=== PATIENT | female | born 1960 | race Caucasian/White ===

== ENCOUNTER 2016-12-24 14:05 | Emergency (ER) | payer OTHER ==
[~2016-12-24] VITALS: Ht 157.5 cm; Wt 87.3 kg
[2016-12-24 14:09] VITALS: Ht 157.5 cm; Wt 87.3 kg
[2016-12-24] MEDS ORDERED: ASPIRIN 325 MG TAB PO STA (14:11)
[2016-12-24] MEDS ORDERED: SOD CHLORIDE 0.9% 1,000 ML IV STA (14:11)
--- NOTE | 2016-12-24 14:32 | RADRPT ---
PROCEDURE: Noncontrast CT Head. CLINICAL INDICATION: Code stroke. Acute neurologic deficit. TECHNIQUE: Noncontrast CT of the head was obtained. The administered radiation dose was CTDI vol = 44.19 mGy, DLP = 720.23 mGy-cm. One or more of the following dose reduction techniques were used: Au tomated exposure control, Adjustment of the mA and/or kV according to patient size, or Use of iterat sheree reconstruction technique. COMPARISON: There are no similar studies submitted for comparison. FINDINGS: There is minimal generalized cerebral volume loss. There are minimal vascular calcifications within the intracranial carotid arteries. There is no loss of wynn-white differentiation to suggest acute territorial infarction. There is no acute intracranial hemorrhage or extra-axial fluid collection. There is no mass effect. No midline shift is identified. The orbits are within normal limits. The paranasal sinuses are well aerated. No destructive osseous lesion is identified. IMPRESSION: 1. No loss of wynn-white differentiation to suggest acute territorial infarction. Consider CTA of t he head/neck or noncontrast MRI of the brain as clinically warranted. 2. No acute intracranial hemorrhage or extra-axial fluid collection. 3. Minimal generalized cerebral volume loss. Further findings as detailed above. These findings were discussed with Dr. Dayron Vaughn at 02:30 p.m. on December 24, 2016. RPTAT: PP .Manuel Hardy MD, Date Time Electronically viewed and signed by .Manuel Hardy MD, on 12/24/2016 14:31 .F/
[2016-12-24 14:44] LABS: ADD SCAN DIFF NO
[2016-12-24 14:47] LABS: BASOPHIL # 0.1 10^3/ul (0.0-0.1); BASOPHILS % 0.6 % (0.0-2.0); EOSINOPHILS # 0.1 10^3/ul (0.0-0.5); EOSINOPHILS % 1.1 % (0.0-7.0); HEMATOCRIT 42.3 % (37.0-47.0); HEMOGLOBIN 13.3 g/dl (12.0-16.0); LYMPHOCYTES # 1.9 10^3/ul (0.8-2.9); LYMPHOCYTES % 18.2 % (15.0-51.0); MEAN CORPUSCULAR HEMOGLOBIN 27.5 pg (29.0-33.0); MEAN CORPUSCULAR HGB CONC 31.4 g/dl (32.0-37.0); MEAN CORPUSCULAR VOLUME 87.6 fl (82.0-101.0); MEAN PLATELET VOLUME 9.5 fl (7.4-10.4); MONOCYTE # 0.8 10^3/ul (0.3-0.9); MONOCYTES % 7.8 % (0.0-11.0); NEUTROPHIL # 7.3 10^3/ul (1.6-7.5); NEUTROPHILS % 71.6 % (39.0-77.0); PLATELET COUNT 341 10^3/UL (140-415); RED BLOOD COUNT 4.83 10^6/ul (4.20-5.40); RED CELL DISTRIBUTION WIDTH 14.5 % (11.5-14.5); WHITE BLOOD COUNT 10.2 10^3/ul (4.8-10.8)
--- NOTE | 2016-12-24 14:50 | RADRPT ---
PROCEDURE: XR Chest. CLINICAL INDICATION: Stroke TECHNIQUE: Chest AP portable. COMPARISON: No comparison available. FINDINGS: The mediastinal structures are unremarkable. The heart is normal in size and configuration. The pu lmonary vascularity is normal. The lung vazquez are unremarkable. No consolidation is identified. The pleural spaces are unremarkable. The axial skeleton is unremarkable. IMPRESSION: No active intrathoracic disease. RPTAT: HGDB .Sunny Brown MD, MD Date Time Electronically viewed and signed by .Sunny Brown MD, on 12/24/2016 14:50 .B/
[2016-12-24 14:55] LABS: INR 0.91; PROTIME 12.3 Sec (12.2-14.2)
[2016-12-24 14:57] LABS: ALBUMIN 3.6 g/dl (3.3-4.9); CHLORIDE 109 mmol/L (97-110); PARTIAL THROMBOPLASTIN TIME 31.4 Sec (25.0-35.0)
[2016-12-24 14:58] LABS: POTASSIUM 4.1 mmol/L (3.5-5.1); SODIUM 144 mmol/L (135-144)
[2016-12-24 15:00] LABS: ALBUMIN/GLOBULIN RATIO 1.02; ALKALINE PHOSPHATASE 140 IU/L (42-121); ANION GAP 19 (8-16); ASPARTATE AMINO TRANSFERASE 18 IU/L (15-46); BLOOD UREA NITROGEN 19 mg/dl (7-20); CARBON DIOXIDE 20 mmol/L (21-31); CREATININE 0.96 mg/dl (0.44-1.00); TOTAL PROTEIN 7.1 g/dl (6.1-8.1)
--- NOTE | 2016-12-24 15:00 | QN ---
Documentation Comment Telestroke Consultation 56 yo woman says she was at [place] [employer], sat down on couch in waiting area at about 10:15 and then when she tried to stand about an hour and a half later, she noted her left leg felt abnormal and heavy, made it difficult to walk. Persisted so ultimately to ED. No similar, says she has chronic slurring of speech which is not changed. No change in vision. No symptoms affecting right leg or either arm. No confusion, no headache, no back pain per patient. Takes ASA, no stronger blood thinner. Has DM2 but no known h/o stroke. No recent sign of bleeding per patient, no recent surgery, no h/o major head trauma. PEx: 141/85 Alert, oriented, no aphasia, mild dysarthria (patient says unchanged). No droop , EOMI, VFF and no hemineglect as best I can determine, denies diplopia. No drift of any extremity, though subjectively more difficult to lift left leg. No sensory loss left leg but subjectively feels abnormal. No clumsiness. Able to stand unassisted, though feels mildly unsteady, she stands with a normal base and can take a couple of steps without apparent difficulty. CT head no ICH Dx: 1. LLE weakness and sensory change Recs: Carefully considered possibility of stroke, though significant diagnostic uncertainty due to isolation of symptoms to 1 limb. Also, although symptoms persist, there is minimal objective evidence of neurologic dysfunction , and I estimate she would recover well without tPA even if this is a stroke. Ultimately it was felt that risk of IV tPA outweighed benefit and decision was made not to administer tPA at very end of 4.5 hour time window. ASA, permissive HTN, MRI brain, echo, tele. ALTAGRACIA HENRIQUEZ MD Dec 24, 2016 14:58
[2016-12-24 15:01] LABS: ALANINE AMINOTRANSFERASE 22 IU/L (13-69); GLUCOSE 133 mg/dl (70-220)
[2016-12-24 15:13] LABS: ADD UMIC NO; URINE BILIRUBIN (Dip) NEGATIVE (NEGATIVE); URINE BLOOD (Dip) NEGATIVE (NEGATIVE); URINE COLOR LT. YELLOW (YELLOW); URINE GLUCOSE (Dip) NEGATIVE (NEGATIVE); URINE KETONES (Dip) NEGATIVE (NEGATIVE); URINE LEUKOCYTE ESTERASE (Dip) NEGATIVE (NEGATIVE); URINE NITRITE (Dip) NEGATIVE (NEGATIVE); URINE TOTAL PROTEIN (Dip) NEGATIVE (NEGATIVE); URINE UROBILINOGEN (Dip) 0.2 E.U./dL (0.1-1.0)
[2016-12-24] MEDS ORDERED: SOD CHLORIDE 0.9% 100 ML ONE (15:13)
[2016-12-24] MEDS ORDERED: IODIXANOL LOCM 100 ML BTL ONE (15:13)
[2016-12-24 15:17] LABS: TROPONIN-I < 0.012 ng/ml (0.00-0.12)
[2016-12-24] MEDS ORDERED: ONDANSETRON 4 MG INJ ONE (15:21)
[2016-12-24 15:30] LABS: BENZODIAZEPINES Negative (NEGATIVE)
[2016-12-24 15:33] LABS: OPIATES Negative (NEGATIVE)
[2016-12-24 15:34] LABS: BARBITURATES Negative (NEGATIVE); CANNABINOIDS Negative (NEGATIVE); COCAINE Negative (NEGATIVE)
--- NOTE | 2016-12-24 16:08 | RADRPT ---
PROCEDURE: CTA Head and neck. CLINICAL INDICATION: Code stroke. Acute neurologic deficit. TECHNIQUE: CTA of the head and neck was obtained . Sagittal and coronal reformations and MIPs were provided. Images were obtained prior following the intravenous contrast administration of 80 cc Vis ipaque 320 contrast. The administered radiation dose was CTDI vol = 21.45, 16.02 mGy, DLP = 10.72, 666.9 mGy-cm. Coronal and sagittal as well as maximal intensity projection reformations were obtain ed. Direct measurements of vessel diameters was made in reference to measurements of the distal inte rnal carotid artery diameter. One or more of the following dose reduction techniques were used: Auto mated exposure control, Adjustment of the mA and/or kV according to patient size, or Use of iterativ e reconstruction technique. COMPARISON: There are no similar studies submitted for comparison.Noncontrast CT of the head from e same day. FINDINGS: CTA neck: Aorta: Normal in caliber. There are mild vascular calcifications within the aortic arch. Right common carotid artery: Patent without evidence of stenosis. Right internal carotid artery: There is moderate to extensive atheroma with moderate vascular calcif ications within the right carotid bulb causing 72% stenosis by NASCET criteria. Right external carotid artery: Patent without evidence of stenosis. Left common carotid artery: Patent without evidence of stenosis. Left internal carotid artery: There is mild atheroma and mild vascular calcifications within the lef t carotid bulb without significant stenosis by NASCET criteria. Left external carotid artery: Patent without evidence of stenosis. V1/V2 vertebral arteries: The left vertebral artery originates off of the aorta which is a normal va riant. Patent bilaterally without evidence of stenosis. Vertebral artery dominance: Right. CTA head: Carotid arteries: There are mild vascular calcifications within the bilateral cavernous carotid [place]. Patent bilaterally without evidence of stenosis. Anterior cerebral arteries: Patent bilaterally without evidence of stenosis. Middle cerebral arteries: Patent bilaterally without evidence of stenosis. Posterior cerebral arteries: Patent bilaterally without evidence of stenosis. Anterior communicating artery: Present. Posterior communicating arteries: Present bilaterally. Basilar artery: Patent without evidence of stenosis. V3/V4 Vertebral arteries: Patent bilaterally without evidence of stenosis. Aneurysm: No aneurysm is identified. Venous sinuses: Patent. CT head with contrast: No significant change from recent noncontrast head CT given limitations of contrast. CT neck: There is no cervical adenopathy. There are mild to moderate emphysematous changes within the lungs. There are mild degenerate changes within the cervical spine. IMPRESSION: CTA Head 1. No arterial thrombus or vessel occlusion. 2. No intracranial stenosis. 3. No intracranial aneurysm. CTA Neck 1. Atherosclerotic disease causing 72% right internal carotid artery stenosis. 2. Mild atherosclerotic disease without left cervical internal carotid artery stenosis by NASCET cri teria. 3. The left vertebral artery originates off of the aorta which is a normal variant. 4. Mild to moderate emphysematous changes within the lungs. Further findings as detailed above. These findings were discussed with Dr. Dayron Vaughn at 04:01 p.m. on December 24, 2016. RPTAT: PP .Manuel Hardy MD, MD Date Time Electronically viewed and signed by .Manuel Hardy MD, on 12/24/2016 16:07 .F/
[2016-12-24] MEDS ORDERED: ASPI-664 PO (16:10)
[2016-12-24] MEDS ORDERED: OMEP20CA16 PO (16:12)
[2016-12-24] MEDS ORDERED: LEVO125T75 PO (16:13)
[2016-12-24] MEDS ORDERED: METF-382 PO (16:14)
[2016-12-24] MEDS ORDERED: CLON-412 PO (16:15)
[2016-12-24] MEDS ORDERED: BUSP10TA2 PO (16:18)
--- NOTE | 2016-12-24 16:18 | ERA ---
ER Documentation Chief Complaint Date/Time DATE: 12/24/16 TIME: 16:08 Chief Complaint left leg heaviness x3hrs no other neurodeficit noted HPI 56-year-old woman brought in by EMS for complaints of left leg weakness, gait ataxia, feeling "heavy" with paresthesias to the leg which occurred about 3 hours prior to arrival. She states she was sitting down in a chair for a long time and when she got up she felt her symptoms. Patient denies previous similar symptoms, although I later found out patient has a long history of low back pain and left leg weakness and problems associated with the left leg including previous paresthesias. Patient did not reveal this information to me upon initial HPI. She states last night she also had a headache. Patient denies fevers or chills, no cough, no recent trauma, no recent falls, no weakness in her arms or legs. Patient uses aspirin although does not use anticoagulant therapy. ROS All systems reviewed and are negative except as per history of present illness. PMhx/Soc Chronic pain, chronic anxiety, hypertension, chronic back pain with peripheral neuropathy History of Surgery: No Anesthesia Reaction: No Hx Neurological Disorder: No Hx Respiratory Disorders: No Hx Cardiac Disorders: Yes (hyperlipidemia) Hx Psychiatric Problems: Yes (bipolar, depression,psychosis) Hx Miscellaneous Medical Probl: Yes (DM type 2) Hx Alcohol Use: No Hx Substance Use: No Hx Tobacco Use: No Smoking Status: Current every day smoker FmHx Family History: No diabetes Physical Exam Vitals Vital Signs Date Time Temp Pulse Resp B/P Pulse Ox O2 Delivery O2 Flow Rate FiO2 12/24/16 15:51 98.0 72 16 121/67 99 Room Air 12/24/16 15:23 98.6 66 16 122/104 99 Room Air 12/24/16 14:09 98.6 76 16 141/85 99 Physical Exam GENERAL: Well-developed, appears dehydrated HEENT: Dry mucous membranes, pink conjunctiva, no cervical spine tenderness or step-off deformities, no goiter, no jaundice or icterus, extraocular movements intact without pain. No submandibular induration, and no pharyngeal erythema NEURO: Alert and oriented 3, cranial nerves II through XII intact bilaterally, pupils equal round reactive to light, no focal deficits or facial asymmetry, sensation intact distally Strength 5/5 in upper extremities bilaterally, 4+/5 strength of the left lower extremity versus 5/5 over the right CARDIAC: Regular rate and rhythm, no murmurs rubs or gallops LUNGS: Clear bilaterally no wheezing crackles or stridor ABDOMEN: Soft nontender, no guarding, no rigidity, no rebound, no psoas sign no obturator sign. Normoactive bowel sounds SKIN: Warm and dry to touch, no abrasions, contusions, or hematomas, no lacerations, no ecchymosis, no target lesions, and without ulcers EXTREMITIES: No clubbing cyanosis or edema, calves are bilaterally symmetrical, no Homans sign, no popliteal cord sign. Distal pulses equal and bilateral. Positive mild gait ataxia. PSYCH: Normal affect without agitation or irritability Result Diagram: 12/24/16 1410 12/24/16 1410 Results 24 hrs Laboratory Tests Test 12/24/16 14:10 12/24/16 14:43 White Blood Count 10.210^3/ul Red Blood Count 4.8310^6/ul Hemoglobin 13.3g/dl Hematocrit 42.3% Mean Corpuscular Volume 87.6fl Mean Corpuscular Hemoglobin 27.5pg Mean Corpuscular Hemoglobin Concent 31.4g/dl Red Cell Distribution Width 14.5% Platelet Count 29371^3/UL Mean Platelet Volume 9.5fl Neutrophils % 71.6% Lymphocytes % 18.2% Monocytes % 7.8% Eosinophils % 1.1% Basophils % 0.6% Nucleated Red Blood Cells % 0.0/100WBC Neutrophils # 7.310^3/ul Lymphocytes # 1.910^3/ul Monocytes # 0.810^3/ul Eosinophils # 0.110^3/ul Basophils # 0.110^3/ul Nucleated Red Blood Cells # 0.010^3/ul Prothrombin Time 12.3Sec Prothrombin Time Ratio 1.0 INR International Normalized Ratio 0.91 Activated Partial Thromboplast Time 31.4Sec Sodium Level 144mmol/L Potassium Level 4.1mmol/L Chloride Level 109mmol/L Carbon Dioxide Level 20mmol/L Anion Gap 19 Blood Urea Nitrogen 19mg/dl Creatinine 0.96mg/dl Glucose Level 133mg/dl Hemoglobin A1c 7.2% Calcium Level 10.0mg/dl Total Bilirubin 0.0mg/dl Direct Bilirubin 0.00mg/dl Indirect Bilirubin 0.0mg/dl Aspartate Amino Transf (AST/SGOT) 18IU/L Alanine Aminotransferase (ALT/SGPT) 22IU/L Alkaline Phosphatase 140IU/L Troponin I < 0.012ng/ml Total Protein 7.1g/dl Albumin 3.6g/dl Globulin 3.50g/dl Albumin/Globulin Ratio 1.02 Urine Color LT. YELLOW Urine Clarity CLEAR Urine pH 6.5 Urine Specific [place] <=1.005 Urine Ketones NEGATIVE Urine Nitrite NEGATIVE Urine Bilirubin NEGATIVE Urine Urobilinogen 0.2 E.U./dL Urine Leukocyte Esterase NEGATIVE Urine Hemoglobin NEGATIVE Urine Glucose NEGATIVE% Urine Total Protein NEGATIVE Urine Opiates Screen Negative Urine Barbiturates Negative Urine Amphetamines Screen Negative Urine Benzodiazepines Screen Negative Urine Cocaine Screen Negative Urine Cannabinoids Negative Current Medications Medications (Trade) Dose Ordered Sig/Pratik Route PRN Reason Start Time Stop Time Status Last Admin Dose Admin Sodium Chloride (NS) 1,000 ml @ 1,000 mls/hr Q1H STAT IV 12/24/16 14:11 12/24/16 15:10 DC 12/24/16 14:46 Aspirin (Aspirin) 325 mg ONCE STAT PO 12/24/16 14:11 12/24/16 14:13 DC 12/24/16 14:46 IV Flush 10 ml 10 ml STK-MED ONCE .ROUTE 12/24/16 15:13 12/24/16 15:14 DC 12/24/16 15:50 Sodium Chloride (NS) 100 ml @ ud STK-MED ONCE .ROUTE 12/24/16 15:13 12/24/16 15:14 DC 12/24/16 15:50 Iodixanol (Visipaque Locm) 100 ml STK-MED ONCE .ROUTE 12/24/16 15:13 12/24/16 15:14 DC 12/24/16 15:51 Ondansetron HCl (Zofran Inj) 4 mg STK-MED ONCE .ROUTE 12/24/16 15:21 12/24/16 15:22 DC Procedures/MDM IV line was established 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 Blood sugar was normal. Code stroke was called given the onset, quality, duration of symptoms. CT scan of the brain was performed that was negative for acute bleed mass or shift. I treated her here with aspirin 325 mg p.o. for neuro protective measures. Tele-neurologist saw the patient, evaluated her and recommended against TPA for now. CT angiogram of the brain and neck was performed, no acute focal thrombosis or ischemia was identified although there was about 70% stenosis of the right carotid artery. Please refer to radiologist dictation for full report. EKG performed, read by me: 71 bpm, normal sinus rhythm, normal axis, no acute ST segment changes, narrow QRS complex, with good R-wave progression in precordial leads. I administered 1 L normal saline intravenously and Zofran 4 mg IV for nausea although she had no episodes of vomiting while here. Chest X-ray 1V Interpreted by me: Soft Tissue: No acute abnormalities Bones: No acute abnormalities Mediastinum/Cardiac Silhouette/Lungs: No acute abnormalities CBC and electrolytes were unremarkable, liver function tests were normal, troponin was negative. Drug screen was negative, urine analysis was negative for infection. Neuro-critical Care: Time: 40 minutes, this was time separate from other procedures. Treatments/Evaluations: Close monitoring and treatment of unstable vital signs, cardiorespiratory, and neurologic status, while maintaining tight balance of fluid, respiratory, and cardiac interventions. I spoke to the [facility] physician regarding the patient's presentation, symptomatology, and imaging studies. She informed me that the patient has a long history of back pain and neuropathic symptoms to the left leg including paresthesias and pain. Patient is safe and stable for transfer to [facility]. [facility] authorization number is [id number]. Patient is without complaints of pain at this time although she states her left lower extremity still feels heavy, she has no other neurologic complaints and no complaints of pain at this time. Departure Diagnosis: Primary Impression: Weakness of left leg Additional Impressions: Sciatica Qualified Code: M54.32 - Sciatica of left side Dehydration Condition: LUBNA Sweeney MD Dec 24, 2016 16:18
[2016-12-24] MEDS ORDERED: PROP40TA4 PO (16:20)
[2016-12-24] MEDS ORDERED: OXYB5TAB7 PO (16:21)
[2016-12-24] MEDS ORDERED: DULO30CA45 PO (16:22)
[2016-12-24] MEDS ORDERED: ARIP30TA10 PO (16:23)
[2016-12-24] MEDS ORDERED: CITA-104 PO (16:23)
[2016-12-24] MEDS ORDERED: MULTI PO (16:24)
[2016-12-24] MEDS ORDERED: LINA5TAB PO (16:24)
[2016-12-24] MEDS ORDERED: MIRT30TA PO (16:25)
[2016-12-24] MEDS ORDERED: QUET400T PO (16:25)
[2016-12-24] MEDS ORDERED: ATOR40TA68 PO (16:26)
[2016-12-24] MEDS ORDERED: TOPI-25 PO (16:28)
[2016-12-24 16:46] VITALS: BP 133/78; PULSE 64; RESP 22; TEMP 98
== END 2016-12-24 18:40 | disposition short-term general hospital (02) ==
LOC: E/R 14:05
DX: M62.81 Muscle weakness (generalized) (principal); M54.32 Sciatica, left side; E86.0 Dehydration; I10 Essential (primary) hypertension; E11.9 Type 2 diabetes mellitus without complications; F17.210 Nicotine dependence, cigarettes, uncomplicated; R51 Headache; Z79.82 Long term (current) use of aspirin; Z96.653 Presence of artificial knee joint, bilateral
CPT/HCPCS: 70450; 70496; 70498; 71010; 80053; 80307; 81003; 83036; 84484; 85025; 85610; 85730; 93005; J2405; J7030; Q9967; 36415

== ENCOUNTER 2018-05-07 17:24 | Emergency (ER) | END 2018-05-07 19:40 | disposition home or self-care (01) ==